=== PATIENT | male | born 1970 | race Caucasian/White ===

== ENCOUNTER 2017-01-31 19:05 | Emergency (ER) | payer BC ==
[2017-01-31] MEDS ORDERED: Alum Hydrox/Mag Hydrox/Simeth 15 ML, Metoclopramide 5 MG, Lidocaine 2% 5 ML PO ONE ×3 (19:33)
[2017-01-31] MEDS ORDERED: Sodium Chloride 0.9% 10 ML Syringe FLUSH PRN (19:33)
[2017-01-31] MEDS ORDERED: Ketorolac 30 MG/ML SDV IVPUSH ONE (19:33)
[2017-01-31] MEDS ORDERED: Sodium Chloride 0.9% 2.5 ML Syringe FLUSH PRN ×2 (19:33)
[2017-01-31] MEDS ORDERED: Aspirin 81 MG Tab.Chew PO ONE (19:33)
[2017-01-31] MEDS ORDERED: LORazepam 2 MG/ML MDV IVPUSH ONE (19:35)
[2017-01-31] MEDS ORDERED: methylPREDNISolone Sodium Succinate 125 MG/2 ML SDV IVPUSH ONE (19:35)
[2017-01-31 19:51] LABS: CHLORIDE,CL 103 mmol/L (98-110); SODIUM,NA 137 mmol/L (136-146)
[2017-01-31] MEDS ORDERED: Sodium Chloride 0.9% 2,000 ML IV ONE (20:30)
--- NOTE | 2017-01-31 20:30 | EDM.PDOC ---
ED HPI GENERAL MEDICAL PROBLEM - General Chief Complaint: Chest Pain Stated Complaint: CHEST PAIN Time Seen by Provider: 01/31/17 19:30 Source of Information: Reports: Patient, Family History Limitations: Reports: No Limitations - History of Present Illness INITIAL COMMENTS - FREE TEXT/NARRATIVE: History of present illness: 46-year-old male presenting with complaints of chest pressure as well as some amount of pain. Patient indicates that he had been up all night and he been doing yard work today when he felt like his allergies are bothering him and he took Sudafed which subsequently caused him to have this pressure in his chest. Patient acknowledges that he is the smoker as well as his father having had the couple heart attacks. Review of systems: As per history of present illness and below otherwise all systems reviewed and negative. Past medical history: As per history of present illness and as reviewed below otherwise noncontributory. Surgical history: As per history of present illness and as reviewed below otherwise noncontributory. Social history: No reported history of drug or alcohol abuse. Family history: As per history of present illness and as reviewed below otherwise noncontributory. Physical exam: HEENT: Atraumatic, normocephalic, pupils reactive, negative for conjunctival pallor or scleral icterus, mucous membranes moist, throat clear, neck supple, nontender, trachea midline. Lungs: Clear to auscultation, breath sounds equal bilaterally, chest nontender. Heart: S1S2, regular, negative for clicks, rubs, or JVD. Abdomen: Soft, nondistended, nontender. Negative for masses or hepatosplenomegaly. Negative for costovertebral tenderness. Pelvis: Stable nontender. Genitourinary: Deferred. Rectal: Deferred. Extremities: Atraumatic, negative for cords or calf pain. Neurovascular unremarkable. Neuro: Awake, alert, oriented. Cranial nerves II through XII unremarkable. Cerebellum unremarkable. Motor and sensory unremarkable throughout. Exam nonfocal. Call assessment is benign save is noted in the subjective complaint above Patient refusing all medication indicating he would rather wait to see his labs. IV fluids ordered secondary to patient's dehydration, patient dressed and indicating that he would rather leave he would hydrate himself at home. Indication of observing patient secondary to coronary history and family and history of smoking patient declined and indicated that he just needed to go home and go to sleep he knew he would be better. Patient left AMA after refusing multiple interventions and/or being admitted for observation. Diagnostics: [Chest x-ray, EKG, CBC, CMP, troponin, amylase, lipase] Therapeutics: [] Impression: [] Plan: [] Definitive disposition and diagnosis as appropriate pending reevaluation and review of above. - Related Data Allergies Allergy/AdvReac Type Severity Reaction Status Date / Time No Known Allergies Allergy Verified 06/06/14 10:21 Home Meds: Home Meds . [No Known Home Meds] 01/14/14 [History] Social & Family History - Tobacco Use Smoking Status *Q: Current Every Day Smoker Years of Tobacco use: 10 Second Hand Smoke Exposure: No - Alcohol Use Days Per Week of Alcohol Use: 0 - Recreational Drug Use Recreational Drug Use: No ED ROS GENERAL - Review of Systems Review Of Systems: See Below (See history of present illness) ED EXAM, GENERAL - Physical Exam Exam: See Below (The history of present illness) Course - Orders/Labs/Meds Orders: Active Orders 24 hr Category Date Time Status Cardiac Monitoring [RC] . DIRECTED Care 01/31/17 19:33 Active EKG Documentation Completion [RC] STAT Care 01/31/17 19:34 Active Pulse Oximetry [RC] ASDIRECTED Care 01/31/17 19:33 Active Chest 2V [CR] Stat Exams 01/31/17 19:33 Taken Sodium Chloride 0.9% [Normal Saline] 2,000 ml Med 01/31/17 20:30 Active IV STAT Sodium Chloride 0.9% [Saline Flush] Med 01/31/17 19:33 Active 10 ml FLUSH ASDIRECTED PRN Sodium Chloride 0.9% [Saline Flush] Med 01/31/17 19:33 Active 2.5 ml FLUSH ASDIRECTED PRN Sodium Chloride 0.9% [Saline Flush] Med 01/31/17 19:33 Active 2.5 ml FLUSH ASDIRECTED PRN Saline Lock Insert [OM.PC] Stat Oth 01/31/17 19:33 Ordered Medication Orders Sodium Chloride (Normal Saline) 2,000 mls @ 999 mls/hr IV STAT ONE Stop: 01/31/17 22:30 Sodium Chloride (Saline Flush) 2.5 ml FLUSH ASDIRECTED PRN PRN Reason: Keep Vein Open Sodium Chloride (Saline Flush) 10 ml FLUSH ASDIRECTED PRN PRN Reason: Keep Vein Open Sodium Chloride (Saline Flush) 2.5 ml FLUSH ASDIRECTED PRN PRN Reason: Keep Vein Open Labs: Laboratory Tests 01/31/17 01/31/17 01/31/17 Range/Units 19:15 19:15 19:15 WBC 9.22 (4.0-11.0) K/uL RBC 5.71 (4.50-5.90) M/uL Hgb 19.0 H (13.0-17.0) g/dL Hct 51.4 H (38.0-50.0) % MCV 90.0 (80.0-98.0) fL MCH 33.3 H (27.0-32.0) pg MCHC 37.0 (31.0-37.0) g/dL RDW Std Deviation 43.7 (28.0-62.0) fl RDW Coeff of Manda 13 (11.0-15.0) % Plt Count 258 (150-400) K/uL MPV 8.50 (7.40-12.00) fL Neut % (Auto) 54.7 (48.0-80.0) % Lymph % (Auto) 34.2 (16.0-40.0) % Rhea % (Auto) 9.7 (0.0-15.0) % Eos % (Auto) 1.0 (0.0-7.0) % Baso % (Auto) 0.4 (0.0-1.5) % Neut # (Auto) 5.1 (1.4-5.7) K/uL Lymph # (Auto) 3.2 H (0.6-2.4) K/uL Rhea # (Auto) 0.9 H (0.0-0.8) K/uL Eos # (Auto) 0.1 (0.0-0.7) K/uL Baso # (Auto) 0.0 (0.0-0.1) K/uL Nucleated RBC % 0.0 /100WBC Nucleated RBCs # 0 K/uL Sodium 137 (136-146) mmol/L Potassium 3.4 L (3.5-5.1) mmol/L Chloride 103 (98-110) mmol/L Carbon Dioxide 22 (21-31) mmol/L BUN 8 (6.0-23.0) mg/dL Creatinine 1.0 (0.6-1.5) mg/dL Est Cr Clr Drug Dosing TNP Estimated GFR (MDRD) > 60.0 ml/min Glucose 103 (60-110) mg/dL Calcium 10.0 (8.8-10.8) mg/dL Total Bilirubin 1.4 (0.1-1.5) mg/dL AST 25 (5-40) IU/L ALT 21 (8-54) IU/L Alkaline Phosphatase 49 (40-150) Troponin I < 0.10 (0.0-0.29) NG/ML Total Protein 8.0 (6.0-8.0) g/dL Albumin 4.7 (3.5-5.0) g/dL Globulin 3.3 (2.0-3.5) g/dL Albumin/Globulin Ratio 1.4 (1.3-2.8) Amylase 58 (10-90) U/L Lipase 18 (7-80) U/L Meds: Medications Generic Name Dose Route Start Last Admin Trade Name Freq PRN Reason Stop Dose Admin Sodium Chloride 2,000 mls @ 999 mls/hr 01/31/17 20:30 Normal Saline IV 01/31/17 22:30 STAT ONE Sodium Chloride 2.5 ml 01/31/17 19:33 Saline Flush FLUSH ASDIRECTED PRN Keep Vein Open Sodium Chloride 10 ml 01/31/17 19:33 Saline Flush FLUSH ASDIRECTED PRN Keep Vein Open Sodium Chloride 2.5 ml 01/31/17 19:33 Saline Flush FLUSH ASDIRECTED PRN Keep Vein Open Discontinued Medications Generic Name Dose Route Start Last Admin Trade Name Freq PRN Reason Stop Dose Admin Aspirin 324 mg 01/31/17 19:33 Aspirin PO 01/31/17 19:34 ONETIME ONE Al Hydroxide/Mg Hydroxide 15 0 ml 01/31/17 19:33 ml/ Metoclopramide HCl 5 mg/ PO 01/31/17 19:34 Lidocaine HCl 5 ml ONETIME ONE Ketorolac Tromethamine 30 mg 01/31/17 19:33 Toradol IVPUSH 01/31/17 19:34 ONETIME ONE Lorazepam 2 mg 01/31/17 19:35 Ativan IVPUSH 01/31/17 19:36 ONETIME ONE Methylprednisolone Sodium Succinate 125 mg 01/31/17 19:35 Solu-Medrol IVPUSH 01/31/17 19:36 ONETIME ONE Departure - Departure Time of Disposition: 21:13 Disposition: Against Medical Advice 07 Condition: good Clinical Impression: Atypical chest pain - Discharge Information - My Orders Last 24 Hours: My Active Orders 01/31/17 19:33 Cardiac Monitoring [RC] . DIRECTED Pulse Oximetry [RC] ASDIRECTED Chest 2V [CR] Stat Sodium Chloride 0.9% [Saline Flush] 10 ml FLUSH ASDIRECTED PRN Sodium Chloride 0.9% [Saline Flush] 2.5 ml FLUSH ASDIRECTED PRN Sodium Chloride 0.9% [Saline Flush] 2.5 ml FLUSH ASDIRECTED PRN Saline Lock Insert [OM.PC] Stat 01/31/17 19:34 EKG Documentation Completion [RC] STAT 01/31/17 20:30 Sodium Chloride 0.9% [Normal Saline] 2,000 ml IV STAT - Assessment/Plan Last 24 Hours: My Active Orders 01/31/17 19:33 Cardiac Monitoring [RC] . DIRECTED Pulse Oximetry [RC] ASDIRECTED Chest 2V [CR] Stat Sodium Chloride 0.9% [Saline Flush] 10 ml FLUSH ASDIRECTED PRN Sodium Chloride 0.9% [Saline Flush] 2.5 ml FLUSH ASDIRECTED PRN Sodium Chloride 0.9% [Saline Flush] 2.5 ml FLUSH ASDIRECTED PRN Saline Lock Insert [OM.PC] Stat 01/31/17 19:34 EKG Documentation Completion [RC] STAT 01/31/17 20:30 Sodium Chloride 0.9% [Normal Saline] 2,000 ml IV STAT
[2017-01-31 21:17] VITALS: BP 148/105
--- NOTE | 2017-02-01 11:46 | CR ---
EXAM DATE: 01/31/17 PATIENT'S AGE: 46 Patient: JULITO ROSS Facility: [place], [place] Site . Site : 1970 Study: XRay Chest [id number] 8:28:14 PM Ordering Physician: Doctor Carson Final Report: CHEST 2 VIEWS INDICATION: Short of breath. Chest pain. IMPRESSION: Normal heart size and vascular pattern. Lungs are clear. No pneumothorax or pleural abnormality. Dictated by Sahil Hernández MD @ Jan 31 2017 8:30PM (Electronic Signature) Report Signed by Proxy. BRANDY
== END 2017-01-31 21:05 | disposition left against medical advice (07) ==
LOC: MW.ED 19:05
DX: R07.89 Other chest pain (principal); F17.210 Nicotine dependence, cigarettes, uncomplicated
CPT/HCPCS: 71020; 71020-26; 80053; 82150; 83690; 84484; 85025; 99283; 99285-25

== ENCOUNTER 2017-02-01 01:02 | Observation (INO) | payer BC ==
[2017-02-01] MEDS ORDERED: Aspirin 81 MG Tab.Chew PO ONE (01:17)
[2017-02-01] MEDS ORDERED: Aspirin 300 MG Supp ONE (01:30)
[2017-02-01] MEDS ORDERED: Nitroglycerin 2% Oint 1 GM UD Packet TOP ONE (01:31)
[2017-02-01] MEDS ORDERED: Alum Hydrox/Mag Hydrox/Simeth 15 ML, Metoclopramide 5 MG, Lidocaine 2% 5 ML PO ONE ×3 (01:31)
[2017-02-01] MEDS: Aspirin 300 MG Supp RECTAL SCH ×2 (01:33→10:35)
[2017-02-01] MEDS ORDERED: Calcium Carbonate 500 MG Tab.Chew PO ONE (01:34)
--- NOTE | 2017-02-01 01:34 | EDM.PDOC ---
ED HPI GENERAL MEDICAL PROBLEM - General Chief Complaint: Chest Pain Stated Complaint: CHEST PAIN Time Seen by Provider: 02/01/17 01:10 Source of Information: Reports: Patient, Family History Limitations: Reports: No Limitations - History of Present Illness INITIAL COMMENTS - FREE TEXT/NARRATIVE: HISTORY AND PHYSICAL: History of present illness: [46-year-old male with a history of long-term tobacco abuse now complaining of chest pain. Patient does not see a doctor regularly but is never been told he had high blood pressure or high cholesterol. He has not been diagnosed as a diabetic. He does have a family history of coronary artery disease with his dad having heart attack around 60 years old.] Patient had a stress test 10 years ago which was negative and no cardiac workup since. He stayed up all night playing golf simulator last night and this morning he was cutting the lawn and took Sudafed for some allergy symptoms. His heart began racing and he got chest pressure so he came to the emergency department. He was seen by our mid-level provider and admission was recommended however patient refused this and signed out AGAINST MEDICAL ADVICE continues feeling better after oxygen administration. This evening patient of old substernal chest pressure rating to his jaw and left arm. He did not feel nausea vomiting diaphoresis or shortness of breath. No pleuritic pain. Pain is not worse with movement. He has no productive cough or fever Review of systems: As per history of present illness and below otherwise all systems reviewed and negative. Past medical history: As per history of present illness and as reviewed below otherwise noncontributory. Surgical history: As per history of present illness and as reviewed below otherwise noncontributory. Social history: No reported history of drug or alcohol abuse. Family history: As per history of present illness and as reviewed below otherwise noncontributory. Physical exam: Patient in no acute distress. Alert communicative and cooperative no diaphoresis or tachypnea normal respiratory rate and pulse ox on room air HEENT: Atraumatic, normocephalic, pupils reactive, negative for conjunctival pallor or scleral icterus, mucous membranes moist, throat clear, neck supple, nontender, trachea midline. Lungs: Clear to auscultation, breath sounds equal bilaterally, chest nontender. Heart: S1S2, regular, negative for clicks, rubs, or JVD. Abdomen: Soft, nondistended, nontender. Negative for masses or hepatosplenomegaly. Negative for costovertebral tenderness. Pelvis: Stable nontender. Genitourinary: Deferred. Rectal: Deferred. Extremities: Atraumatic, negative for cords or calf pain. Neurovascular unremarkable. Neuro: Awake, alert, oriented. Cranial nerves II through XII unremarkable. Cerebellum unremarkable. Motor and sensory unremarkable throughout. Exam nonfocal. Diagnostics: [EKG with normal sinus rhythm at 89 normal axis no STEMI nonspecific ST and T- wave depression in inferior lateral distribution] Chest x-ray unremarkable with a narrow mediastinum interpreted by me Therapeutics: [Aspirin given but patient did not want to take it by mouth and requested rectal administration. Patient with mild hypertension 140s over 90s. Nitropaste administered. Vital signs stable] Impression: [Chest pain] Plan: [Signs and symptoms consistent with chest pain of possible cardiac etiology and clinical history suspicious for physiologic stress test with increased heart rate after taking it earlier. Patient has ST segment depression with T-wave abnormality in the inferior lateral distribution possibly consistent with evolving ischemic disease. Patient stable SAIMA and agrees with recommendation of admission for cardiac workup. Case will be discussed with Dr. Scooby Newman regarding observation telemetry admission for cardiac evaluation Definitive disposition and diagnosis as appropriate pending reevaluation and review of above. Left Chest Pain Score (Numeric/FACES): 7 - Related Data Allergies Allergy/AdvReac Type Severity Reaction Status Date / Time No Known Allergies Allergy Verified 02/01/17 01:09 Home Meds: Home Meds . [No Known Home Meds] 01/14/14 [History] Past Medical History - Past Health History Medical/Surgical History: Denies Medical/Surgical History - Infectious Disease History Infectious Disease History: Reports: Chicken Pox Social & Family History - Family History Family Medical History: Noncontributory - Tobacco Use Smoking Status *Q: Current Every Day Smoker Years of Tobacco use: 4 Packs/Tins Daily: 1 Second Hand Smoke Exposure: No - Alcohol Use Days Per Week of Alcohol Use: 0 - Recreational Drug Use Recreational Drug Use: No ED ROS GENERAL - Review of Systems Review Of Systems: See Below (History of present illness) ED EXAM, GENERAL - Physical Exam Exam: See Below (History of present illness) Course - Vital Signs Last Recorded V/S: Last Vital Signs Temp 36.2 C 02/01/17 01:06 Pulse 94 02/01/17 02:04 Resp 20 02/01/17 02:04 BP 145/97 H 02/01/17 02:04 Pulse Ox 98 02/01/17 02:04 - Orders/Labs/Meds Orders: Active Orders 24 hr Category Date Time Status Patient Status [ADT] Stat ADT 02/01/17 02:31 Ordered EKG 12 Lead [EKG Documentation Completion] [RC] STAT Care 02/01/17 01:25 Active Telemetry Monitoring [Cardiac Monitoring] [RC] Q8H Care 02/01/17 02:41 Active Cardiac [Heart Healthy Diet] [DIET] Diet 02/01/17 Breakfast Active Chest 1V Frontal [CR] Stat Exams 02/01/17 01:24 Taken TROPONIN I [CHEM] Q6H Lab 02/01/17 07:09 Ordered TROPONIN I [CHEM] Q6H Lab 02/01/17 13:09 Ordered Aspirin Med 02/01/17 09:00 Active 300 mg RECTAL DAILY Medication Orders Aspirin (Aspirin) 300 mg RECTAL DAILY BRAYDEN Last Admin: 02/01/17 01:33 Dose: 300 mg Labs: Laboratory Tests 02/01/17 02/01/17 02/01/17 Range/Units 01:09 01:09 01:09 WBC 10.80 (4.0-11.0) K/uL RBC 5.66 (4.50-5.90) M/uL Hgb 18.4 H (13.0-17.0) g/dL Hct 50.8 H (38.0-50.0) % MCV 89.8 (80.0-98.0) fL MCH 32.5 H (27.0-32.0) pg MCHC 36.2 (31.0-37.0) g/dL RDW Std Deviation 41.9 (28.0-62.0) fl RDW Coeff of Manda 13 (11.0-15.0) % Plt Count 256 (150-400) K/uL MPV 8.20 (7.40-12.00) fL Neut % (Auto) 60.7 (48.0-80.0) % Lymph % (Auto) 28.5 (16.0-40.0) % [place] % (Auto) 9.0 (0.0-15.0) % Eos % (Auto) 1.5 (0.0-7.0) % Baso % (Auto) 0.3 (0.0-1.5) % Neut # (Auto) 6.6 H (1.4-5.7) K/uL Lymph # (Auto) 3.1 H (0.6-2.4) K/uL [place] # (Auto) 1.0 H (0.0-0.8) K/uL Eos # (Auto) 0.2 (0.0-0.7) K/uL Baso # (Auto) 0.0 (0.0-0.1) K/uL Sodium 137 (136-146) mmol/L Potassium 3.6 (3.5-5.1) mmol/L Chloride 104 (98-110) mmol/L Carbon Dioxide 22 (21-31) mmol/L BUN 10 (6.0-23.0) mg/dL Creatinine 1.0 (0.6-1.5) mg/dL Est Cr Clr Drug Dosing TNP Estimated GFR (MDRD) > 60.0 ml/min Glucose 99 (60-110) mg/dL Calcium 9.6 (8.8-10.8) mg/dL Total Bilirubin 2.1 H (0.1-1.5) mg/dL AST 26 (5-40) IU/L ALT 21 (8-54) IU/L Alkaline Phosphatase 48 (40-150) Troponin I < 0.10 (0.0-0.29) NG/ML Total Protein 7.8 (6.0-8.0) g/dL Albumin 4.6 (3.5-5.0) g/dL Globulin 3.2 (2.0-3.5) g/dL Albumin/Globulin Ratio 1.4 (1.3-2.8) Meds: Medications Generic Name Dose Route Start Last Admin Trade Name Freq PRN Reason Stop Dose Admin Aspirin 300 mg 02/01/17 09:00 02/01/17 01:33 Aspirin RECTAL 300 mg DAILY BRAYDEN Administration Discontinued Medications Generic Name Dose Route Start Last Admin Trade Name Freq PRN Reason Stop Dose Admin Aspirin 324 mg 02/01/17 01:17 02/01/17 01:28 Aspirin PO 02/01/17 01:18 Not Given ONETIME ONE Aspirin Confirm 02/01/17 01:30 Aspirin Administered 02/01/17 01:31 Dose 300 mg .ROUTE .STK-MED ONE Calcium Carbonate/Glycine 1,000 mg 02/01/17 01:34 02/01/17 01:48 Tums PO 02/01/17 01:35 1,000 mg ONETIME ONE Administration Al Hydroxide/Mg Hydroxide 15 0 ml 02/01/17 01:31 ml/ Metoclopramide HCl 5 mg/ PO 02/01/17 01:32 Lidocaine HCl 5 ml ONETIME ONE Nitroglycerin 1 gm 02/01/17 01:31 02/01/17 01:59 Nitro-Bid 2% TOP 02/01/17 01:32 1 gm ONETIME ONE Administration Departure - Departure Time of Disposition: 02:30 Disposition: Refer to Observation Condition: fair Clinical Impression: Chest pain, Abnormal finding on EKG Referrals: PCP,None [Primary Care Provider] - - My Orders Last 24 Hours: My Active Orders 02/01/17 01:24 Chest 1V Frontal [CR] Stat 02/01/17 01:25 EKG 12 Lead [EKG Documentation Completion] [RC] STAT 02/01/17 02:31 Patient Status [ADT] Stat 02/01/17 02:41 Telemetry Monitoring [Cardiac Monitoring] [RC] Q8H 02/01/17 09:00 Aspirin 300 mg RECTAL DAILY - Assessment/Plan Last 24 Hours: My Active Orders 02/01/17 01:24 Chest 1V Frontal [CR] Stat 02/01/17 01:25 EKG 12 Lead [EKG Documentation Completion] [RC] STAT 02/01/17 02:31 Patient Status [ADT] Stat 02/01/17 02:41 Telemetry Monitoring [Cardiac Monitoring] [RC] Q8H 02/01/17 09:00 Aspirin 300 mg RECTAL DAILY
[2017-02-01 01:40] LABS: CHLORIDE,CL 104 mmol/L (98-110); SODIUM,NA 137 mmol/L (136-146)
--- NOTE | 2017-02-01 11:54 | CR ---
EXAM DATE: 02/01/17 PATIENT'S AGE: 46 Patient: JULITO ROSS Facility: [place], [place] Site . Site : 1970 Study: XRay Chest [id number] 1:38:39 AM Ordering Physician: Doctor Carson Final Report: INDICATION: chest pain TECHNIQUE: Chest 1 view COMPARISON: January 31, 2017 FINDINGS: Cardiovascular and mediastinum: Heart size and vasculature are normal in caliber and appearance. Mediastinum is within normal limits. Lungs and pleural space: No focal consolidation. No sign of pleural effusion. No pneumothorax. Bones and soft tissues: No significant findings. IMPRESSION: No acute cardiopulmonary disease. Dictated by Edilson Walden MD @ 02/01/2017 2:18:14 AM Dictated by: Edilson Walden MD @ 02/01/2017 02:18:21 (Electronic Signature) Report Signed by Proxy. [facility]DM[facility]
[2017-02-01 13:29] VITALS: BP 136/80
--- NOTE | 2017-02-01 14:20 | PCM.HP ---
H&P History of Present Illness - History of Present Illness Initial Comments - Free Text/Narative: 46 yo male who presents with one day history of chest pain. He reports his chest pain as burning sensation right below the sternum that radiates up his neck and arms. He reports excess burping that tends to relieve his chest pain. He occasionally gets pain in the same location but not as intense while eating. He smokes for the past six years. He reports he has similar pain ten years ago had negative stress testing and EGD. He was treated at the time empirically for H.pylori but did not complete the treatment due to intolerance to medication. To this day he will not take any oral pills. Left Chest Pain Score (Numeric/FACES): 4 - Related Data Allergies/Adverse Reactions: Allergies Allergy/AdvReac Type Severity Reaction Status Date / Time No Known Allergies Allergy Verified 02/01/17 01:09 Home Medications: Home Meds . [No Known Home Meds] 01/14/14 [History] Past Medical History - Past Health History Medical/Surgical History: Denies Medical/Surgical History Psychiatric History: Reports: Anxiety - Infectious Disease History Infectious Disease History: Reports: Chicken Pox - Past Surgical History GI Surgical History: Reports: Appendectomy Musculoskeletal Surgical History: Reports: Other (See Below) Other Musculoskeletal Surgeries/Procedures:: surgery after cutting leg with saw Social & Family History - Family History Family Medical History: Noncontributory Cardiac: Reports: CAD, [place] - Tobacco Use Smoking Status *Q: Current Every Day Smoker Years of Tobacco use: 7 Packs/Tins Daily: 1 Used Tobacco, but Quit: No Second Hand Smoke Exposure: No - Caffeine Use Caffeine Use: Reports: None - Alcohol Use Days Per Week of Alcohol Use: 0 - Recreational Drug Use Recreational Drug Use: No H&P Review of Systems - Review of Systems: Review Of Systems: See Below General: Reports: No Symptoms HEENT: Reports: No Symptoms Pulmonary: Reports: No Symptoms Cardiovascular: Reports: No Symptoms Gastrointestinal: Reports: No Symptoms Genitourinary: Reports: No Symptoms Musculoskeletal: Reports: No Symptoms Skin: Reports: No Symptoms Psychiatric: Reports: No Symptoms Neurological: Reports: No Symptoms Hematologic/Lymphatic: Reports: No Symptoms Immunologic: Reports: No Symptoms Exam - Exam Exam: See Below - Vital Signs Vital Signs: Last Vital Signs Temp 36.4 C 02/01/17 12:00 Pulse 87 02/01/17 12:00 Resp 20 02/01/17 12:00 BP 136/80 02/01/17 12:00 Pulse Ox 95 02/01/17 12:00 Weight: 79.197 kg - Exam General: Alert, Oriented, 4 HEENT: Mucosa Moist & Bernard Neck: No: JVD Lungs: Clear to Auscultation, Normal Respiratory Effort Cardiovascular: Regular Rate, Regular Rhythm Abdomen: Normal Bowel Sounds, Soft. No: Tenderness Extremities: 3, Normal Inspection, 10 Skin: Warm, Dry, Intact Neurological: No: Focal Deficit - Patient Data Lab Results last 24 hrs: Laboratory Results - last 24 hr 02/01/17 02/01/17 Range/Units 07:30 13:11 Troponin I < 0.10 < 0.10 (0.0-0.29) NG/ML Result Diagrams: 02/01/17 01:09 02/01/17 01:09 Imaging Impressions last 24 hrs: Chest x-ray: no acute cardiopulmonary disease EKG: normal sinus, HR 89, no st segment changes. *Q Meaningful Use (ADM) - VTE *Q VTE Criteria *Q: - Stroke *Q Stroke Criteria *Q: - AMI *Q AMI Criteria *Q: Problem List Initiated/Reviewed/Updated: Yes Orders Last 24hrs: Active Orders 24 hr Category Date Time Status Ready for Discharge [RC] PER UNIT ROUTINE Care 02/01/17 14:13 Ordered Cardiac [Heart Healthy Diet] [DIET] Diet 02/01/17 Breakfast Active Assessment/Plan Comment:: 46 yo male who presents with chest pain. He has ruled out for acute coronary syndrome with serial negative cardiac enzymes. I suspect patient has dyspepsia. Patient refuses PPI. I have recommended referral to outpatient cardiac stress testing. I recommend that he elevated the head of bed and avoid spicy foods. He was given smoking cessation counseling and is motivated to quit. He is to follow up with his PCP within two weeks.
== END 2017-02-01 14:50 | disposition home or self-care (01) ==
LOC: MW.ED 01:02 → MW.MS 02:42
PROVIDERS: ADMIT Internal Medicine; ATTEND Internal Medicine
DX: R07.9 Chest pain, unspecified (principal); F41.9 Anxiety disorder, unspecified; F17.210 Nicotine dependence, cigarettes, uncomplicated; Z90.49 Acquired absence of other specified parts of digestive tract; Z98.890 Other specified postprocedural states; Z82.49 Family history of ischemic heart disease and other diseases of the circulatory system
CPT/HCPCS: 71010; 80053; 84484; 85025; 93005; 99285; A9270; G0378